=== PATIENT | female | born 1945 | race Native Hawaiian/Other Pacific Islander ===

== ENCOUNTER 2016-04-28 09:34 | Outpatient (CLI) | payer OTHER, MEDICARE ==
[2016-04-28 10:03] LABS: PLATELET COUNT 213 K/uL (152-353)
== END 2016-04-28 19:12 | disposition home or self-care (01) ==
LOC: LABW 09:34
PROVIDERS: Internal Medicine Nephrology
DX: I12.9 Hypertensive chronic kidney disease with stage 1 through stage 4 chronic kidney disease, or unspecified chronic kidney disease (principal); N18.4 Chronic kidney disease, stage 4 (severe); E11.9 Type 2 diabetes mellitus without complications
CPT/HCPCS: 36415; 80053; 81000; 82306; 82570; 83970; 84100; 84155; 85027

== ENCOUNTER 2016-08-24 10:34 | Outpatient (CLI) | payer OTHER, MEDICARE | END 2016-08-24 11:35 | disposition home or self-care (01) | LOC: LABW 10:34 | PROVIDERS: Internal Medicine Nephrology | DX: E78.4 Other hyperlipidemia (principal); M10.9 Gout, unspecified; N18.4 Chronic kidney disease, stage 4 (severe) | CPT/HCPCS: 36415; 80061; 82652; 83970; 84436; 84443; 84550 ==

== ENCOUNTER 2016-12-15 13:35 | Outpatient (CLI) | payer OTHER, MEDICARE ==
[2016-12-15 15:13] LABS: PLATELET COUNT 244 K/uL (152-353)
== END 2016-12-15 14:35 | disposition home or self-care (01) ==
LOC: LABW 13:35
PROVIDERS: Internal Medicine Nephrology
DX: I12.9 Hypertensive chronic kidney disease with stage 1 through stage 4 chronic kidney disease, or unspecified chronic kidney disease (principal); N18.4 Chronic kidney disease, stage 4 (severe); E11.9 Type 2 diabetes mellitus without complications
CPT/HCPCS: 36415; 80053; 81000; 82306; 82570; 83970; 84100; 84155; 85027

== ENCOUNTER 2017-04-29 09:39 | Outpatient (CLI) | payer OTHER, MEDICARE ==
[2017-04-29 10:03] LABS: PLATELET COUNT 205 K/uL (152-353)
[2017-04-29 10:05] LABS: POTASSIUM 4.1 mmol/L (3.6-5.2)
== END 2017-04-29 22:55 | disposition home or self-care (01) ==
LOC: LABW 09:39
PROVIDERS: Internal Medicine Nephrology
DX: I12.9 Hypertensive chronic kidney disease with stage 1 through stage 4 chronic kidney disease, or unspecified chronic kidney disease (principal); N18.4 Chronic kidney disease, stage 4 (severe); E11.9 Type 2 diabetes mellitus without complications
CPT/HCPCS: 36415; 80053; 81000; 82306; 82570; 83970; 84100; 84155; 85027

== ENCOUNTER 2017-09-28 08:14 | Outpatient (CLI) | payer OTHER, MEDICARE ==
[2017-09-28 08:58] LABS: PLATELET COUNT 249 K/uL (152-353)
[2017-09-28 09:11] LABS: POTASSIUM 4.5 mmol/L (3.6-5.2)
== END 2017-09-28 21:53 | disposition home or self-care (01) ==
LOC: LABW 08:14
PROVIDERS: Internal Medicine Nephrology
DX: N18.4 Chronic kidney disease, stage 4 (severe) (principal); I10 Essential (primary) hypertension; E11.9 Type 2 diabetes mellitus without complications
CPT/HCPCS: 36415; 80053; 81000; 82306; 82570; 83970; 84100; 84155; 85027

== ENCOUNTER 2017-10-14 09:37 | Outpatient (CLI) | payer OTHER, MEDICARE | END 2017-10-14 23:19 | disposition home or self-care (01) | LOC: RAD 09:37 | DX: Z01.818 Encounter for other preprocedural examination (principal) ==

== ENCOUNTER 2017-10-19 07:43 | Outpatient (CLI) | payer OTHER, MEDICARE | END 2017-10-19 22:19 | disposition home or self-care (01) | LOC: LABW 07:43 | DX: N18.4 Chronic kidney disease, stage 4 (severe) (principal); D64.9 Anemia, unspecified | CPT/HCPCS: 36415; 83540; 83550 ==

== ENCOUNTER 2017-11-29 12:01 | Outpatient (CLI) | payer OTHER, MEDICARE ==
[2017-11-29 12:18] LABS: PLATELET COUNT 272 K/uL (152-353)
[2017-11-29 12:26] LABS: POTASSIUM 4.1 mmol/L (3.6-5.2)
== END 2017-11-29 19:54 | disposition home or self-care (01) ==
LOC: LABW 12:01
PROVIDERS: Orthopaedic Surgery
DX: Z01.810 Encounter for preprocedural cardiovascular examination (principal); E11.9 Type 2 diabetes mellitus without complications
CPT/HCPCS: 36415; 80053; 83036; 85027

== ENCOUNTER 2018-01-18 09:43 | Outpatient (CLI) | payer OTHER, MEDICARE ==
[2018-01-18 10:34] LABS: PLATELET COUNT 228 K/uL (152-353)
[2018-01-18 10:38] LABS: POTASSIUM 3.7 mmol/L (3.6-5.2)
== END 2018-01-18 22:10 | disposition home or self-care (01) ==
LOC: LABW 09:43
PROVIDERS: Internal Medicine Nephrology
DX: I10 Essential (primary) hypertension (principal); N18.4 Chronic kidney disease, stage 4 (severe); E11.9 Type 2 diabetes mellitus without complications
CPT/HCPCS: 36415; 80053; 81000; 82306; 82570; 83970; 84100; 84155; 85027

== ENCOUNTER 2018-08-29 08:32 | Outpatient (CLI) | payer OTHER, MEDICARE ==
[2018-08-29 09:05] LABS: PLATELET COUNT 248 K/uL (152-353)
[2018-08-29 09:14] LABS: POTASSIUM 4.1 mmol/L (3.6-5.2)
== END 2018-08-29 21:38 | disposition home or self-care (01) ==
LOC: LABW 08:32
PROVIDERS: Internal Medicine Nephrology
DX: I12.9 Hypertensive chronic kidney disease with stage 1 through stage 4 chronic kidney disease, or unspecified chronic kidney disease (principal); N18.4 Chronic kidney disease, stage 4 (severe); J30.9 Allergic rhinitis, unspecified; D64.89 Other specified anemias; S92.819A Other fracture of unspecified foot, initial encounter for closed fracture; S62.509A Fracture of unspecified phalanx of unspecified thumb, initial encounter for closed fracture; M10.9 Gout, unspecified; E83.52 Hypercalcemia; E78.49 Other hyperlipidemia; E03.8 Other specified hypothyroidism; E11.9 Type 2 diabetes mellitus without complications; E56.9 Vitamin deficiency, unspecified
CPT/HCPCS: 36415; 80053; 82570; 83970; 84155; 85027

== ENCOUNTER 2018-09-29 09:13 | Outpatient (CLI) | payer OTHER, MEDICARE | END 2018-09-29 20:27 | disposition home or self-care (01) | LOC: LABW 09:13 | PROVIDERS: Internal Medicine | DX: E11.9 Type 2 diabetes mellitus without complications (principal) | CPT/HCPCS: 36415; 80061; 81000; 82043; 82570; 83036; 84439; 84443 ==

== ENCOUNTER 2018-11-28 04:58 | Outpatient (CLI) | payer OTHER, MEDICARE | END 2018-11-28 05:08 | disposition short-term general hospital (02) | LOC: AMB 04:58 | DX: R06.89 Other abnormalities of breathing (principal); M54.5 Low back pain; R73.9 Hyperglycemia, unspecified; R00.1 Bradycardia, unspecified | CPT/HCPCS: A0425; A0427 ==

== ENCOUNTER 2018-11-28 05:13 | Emergency (ER) | payer OTHER, MEDICARE ==
[~2018-11-28] VITALS: Ht 165.1 cm; Wt 81.6 kg
[2018-11-28 05:13] VITALS: BP 130/75; TEMP 97.3
[2018-11-28 06:09] LABS: PLATELET COUNT 277 K/uL (152-353)
[2018-11-28 06:10] LABS: SODIUM 131 mmol/L (136-145)
[2018-11-28 06:14] LABS: POTASSIUM 7.8 mmol/L (3.6-5.2)
[2018-11-28 06:43] LABS: PARTIAL THROMBOPLASTIN TIME 31.1 SECONDS (24.5-33.6)
== END 2018-11-28 07:52 | disposition expired ==
LOC: ED 05:13
PROVIDERS: Hospitalist
DX: I46.9 Cardiac arrest, cause unspecified (principal); N17.9 Acute kidney failure, unspecified; R06.02 Shortness of breath; E11.9 Type 2 diabetes mellitus without complications
CPT/HCPCS: 80053; 80320; 82550; 82553; 82805; 82962; 83880; 84484; 85027; 85610; 85730; 92950; 96365; 96366; 96374; 96375; 99291; J0171; J0282; J0461; J1815; J2310; J3490